=== PATIENT | female | born 1975 | race Two or more races ===

== ENCOUNTER → 2022-07-29 | Outpatient (CLI) | payer BC ==
[2022-07-29 07:12] LABS: Basophils # (auto) 0.1 10 ^3/uL (0-0.2); Basophils % (auto) 0.5 % (0.0-2.0); Eosinophils # (auto) 0.1 10 ^3/uL (0-0.8); Eosinophils % (auto) 0.9 % (0.0-7.0); Hematocrit 38.4 % (36.0-46.0); Hemoglobin 12.8 g/dL (12.2-16.2); Lymphocytes # (auto) 1.9 10 ^3/uL (0.4-5.4); Lymphocytes % (auto) 19.2 % (10.0-50.0); Mean Corpuscular Hemoglobin 26.4 pg (28.0-32.0); Mean Corpuscular Hgb Conc. 33.3 g/dL (32.0-36.0); Mean Corpuscular Volume 79.3 fL (80.0-100.0); Monocytes % (auto) 10.3 % (0.0-12.0); Neutrophils % (auto) 69.1 % (37.0-80.0); Nucleated Red Blood Cells % 0.1 %; Red Blood Cells 4.84 10^6/uL (4.0-5.20); Red Cell Distribution Width 15.5 % (11.8-14.3); White Blood Cell 10.1 10^3/uL (4.4-10.8)
[2022-07-29 07:50] LABS: Albumin 3.8 g/dL (3.4-5.0); Potassium 4.2 mmol/L (3.5-5.1)
[2022-07-29 07:55] LABS: BUN/Creatinine Ratio 18.6; Bilirubin, Total 0.5 mg/dL (0.2-1.0); Total Protein 7.5 g/dL (6.4-8.2)
== END | disposition home or self-care (01) ==
LOC: LAB 06:45
PROVIDERS: ATTEND Nurse Practitioner Family
DX: E11.9 Type 2 diabetes mellitus without complications (principal); F41.9 Anxiety disorder, unspecified
CPT/HCPCS: 36415; 80053; 80061; 82043; 83036; 84439; 84443; 85025

== ENCOUNTER → 2022-08-12 | Outpatient (CLI) | payer BC | END | disposition home or self-care (01) | LOC: XYW 11:04 | PROVIDERS: ATTEND Nurse Practitioner Family | DX: R20.0 Anesthesia of skin (principal); E11.42 Type 2 diabetes mellitus with diabetic polyneuropathy; R20.9 Unspecified disturbances of skin sensation; M79.671 Pain in right foot | CPT/HCPCS: 93925 ==

== ENCOUNTER → 2023-10-10 | Outpatient (CLI) | payer BC ==
[2023-10-10 07:36] LABS: Basophils # (auto) 0 10 ^3/uL (0-0.2); Eosinophils # (auto) 0.1 10 ^3/uL (0-0.8); Hemoglobin 10.5 g/dL (12.2-16.2); Monocytes # (auto) 0.6 10 ^3/uL (0-1.3); Neutrophils # (auto) 4.7 10 ^3/uL (1.6-8.6); Red Cell Distribution Width 17.4 % (11.8-14.3)
[2023-10-10 07:38] LABS: Basophils % (auto) 0.5 % (0.0-2.0); Eosinophils % (auto) 0.9 % (0.0-7.0); Lymphocytes # (auto) 2.1 10 ^3/uL (0.4-5.4); Lymphocytes % (auto) 27.7 % (10.0-50.0); Mean Corpuscular Hemoglobin 23.4 pg (28.0-32.0); Mean Corpuscular Hgb Conc. 31.8 g/dL (32.0-36.0); Mean Corpuscular Volume 73.7 fL (80.0-100.0); Monocytes % (auto) 8.1 % (0.0-12.0); Neutrophils % (auto) 62.8 % (37.0-80.0); Red Blood Cells 4.48 10^6/uL (4.0-5.20); White Blood Cell 7.5 10^3/uL (4.4-10.8)
[2023-10-10 08:13] LABS: Creatinine, Urine 66.25 mg/dL (30.0-125.0)
[2023-10-10 08:19] LABS: Alanine Aminotransferase 22 U/L (7-40); Alkaline Phosphatase 68 U/L (46-116); Anion Gap 9 (5-15); Aspartate Aminotransferase 24 U/L (13-40); BUN/Creatinine Ratio 12.2 (10.0-20.0); Blood Urea Nitrogen 9 mg/dL (9-23); Calcium 9.3 mg/dL (8.5-10.1); Carbon Dioxide 24 mmol/L (20-30); Chloride 108 mmol/L (98-107); Glucose 129 mg/dL (74-106); LDL Cholesterol 108 mg/dL (< 100); Potassium 4.1 mmol/L (3.5-5.1); Sodium 141 mmol/L (136-145); Triglycerides 171 mg/dL (< 150)
[2023-10-10 08:20] LABS: Albumin 4.3 g/dL (3.2-4.8); Bilirubin, Total 0.5 mg/dL (0.2-1.0); Cholesterol 194 mg/dL (< 200); HDL Cholesterol 63 mg/dL (40-59); Total Protein 7.2 g/dL (5.7-8.2)
== END | disposition home or self-care (01) ==
LOC: LAB 07:23
PROVIDERS: ATTEND Nurse Practitioner Family
DX: E11.42 Type 2 diabetes mellitus with diabetic polyneuropathy (principal); I10 Essential (primary) hypertension; E78.5 Hyperlipidemia, unspecified
CPT/HCPCS: 36415; 80053; 80061; 82043; 82570; 83036; 84439; 84443; 85025

== ENCOUNTER → 2024-11-14 | Outpatient (CLI) | payer BC ==
[2024-11-14 07:13] LABS: Basophils # (auto) 0 10 ^3/uL (0-0.2); Eosinophils # (auto) 0.1 10 ^3/uL (0-0.8); Eosinophils % (auto) 1.2 % (0.0-7.0); Hemoglobin 10.5 g/dL (12.2-16.2); Monocytes # (auto) 0.8 10 ^3/uL (0-1.3)
[2024-11-14 07:14] LABS: Alanine Aminotransferase 20 U/L (7-40); Albumin 4.4 g/dL (3.2-4.8); Alkaline Phosphatase 78 U/L (46-116); Anion Gap 10 (5-15); Aspartate Aminotransferase 19 U/L (13-40); Blood Urea Nitrogen 9 mg/dL (9-23); Calcium 10.1 mg/dL (8.7-10.4); Carbon Dioxide 26 mmol/L (20-31); Chloride 105 mmol/L (98-107); Cholesterol 182 mg/dL (< 200); Glucose 98 mg/dL (74-106); Potassium 4.2 mmol/L (3.5-5.1); Sodium 141 mmol/L (136-145); Total Protein 7.2 g/dL (5.7-8.2); Triglycerides 90 mg/dL (< 150)
[2024-11-14 07:15] LABS: Bilirubin, Total 0.8 mg/dL (0.2-1.0)
[2024-11-14 07:16] LABS: HDL Cholesterol 63 mg/dL (40-59); LDL Cholesterol 106 mg/dL (< 100)
[2024-11-14 07:18] LABS: Basophils % (auto) 0.3 % (0.0-2.0); Hematocrit 32.8 % (36.0-46.0); Lymphocytes # (auto) 1.8 10 ^3/uL (0.4-5.4); Lymphocytes % (auto) 25.1 % (10.0-50.0); Mean Corpuscular Hemoglobin 24.4 pg (28.0-32.0); Mean Corpuscular Hgb Conc. 32.1 g/dL (32.0-36.0); Monocytes % (auto) 10.5 % (0.0-12.0); Neutrophils # (auto) 4.6 10 ^3/uL (1.6-8.6); Neutrophils % (auto) 62.9 % (37.0-80.0); Nucleated Red Blood Cells % 0.1 %; Platelet Count (auto) 294 10^3/uL (140-450); Red Blood Cells 4.32 10^6/uL (4.0-5.20); Red Cell Distribution Width 18.7 % (11.8-14.3); White Blood Cell 7.3 10^3/uL (4.4-10.8)
[2024-11-14 07:53] LABS: Creatinine, Urine 83.89 mg/dL (30.0-125.0)
== END | disposition home or self-care (01) ==
LOC: LAB 06:35
PROVIDERS: ATTEND Nurse Practitioner Family
DX: I10 Essential (primary) hypertension (principal); E11.42 Type 2 diabetes mellitus with diabetic polyneuropathy; F41.9 Anxiety disorder, unspecified
CPT/HCPCS: 36415; 80053; 80061; 82043; 82570; 83036; 84443; 85025

== ENCOUNTER 2025-01-01 15:38 | Outpatient (CLI) | payer BC | END 2025-01-01 17:00 | disposition home or self-care (01) | LOC: LAB 15:38 | PROVIDERS: ATTEND Nurse Practitioner Family | DX: N39.0 Urinary tract infection, site not specified (principal) | CPT/HCPCS: 87086 ==

== ENCOUNTER 2025-04-16 16:27 | Outpatient (CLI) | payer BC ==
[2025-04-18] MEDS ORDERED: PREG20SO OR (12:07)
[2025-04-18] MEDS ORDERED: ALPR0.25 PO (12:07)
[2025-04-18] MEDS ORDERED: TIRZ5INJ SC (12:07)
== END 2025-04-16 17:00 | disposition home or self-care (01) ==
LOC: LAB 16:27
PROVIDERS: ATTEND Nurse Practitioner Family
DX: N39.0 Urinary tract infection, site not specified (principal)
CPT/HCPCS: 87086

== ENCOUNTER 2025-04-24 06:06 | Day surgery (SDC) | payer BC ==
[2025-04-18 12:38] LABS: Hematocrit 33.6 % (36.0-46.0); Hemoglobin 10.9 g/dL (12.2-16.2); Mean Corpuscular Hemoglobin 26.1 pg (28.0-32.0); Mean Corpuscular Volume 80.5 fL (80.0-100.0); Nucleated Red Blood Cells % 0.0 %
[2025-04-18 12:47] LABS: Urine Protein, UAD Negative (Negative); Urine WBC Clumps PRESENT /hpf (None Seen)
[2025-04-18 12:57] LABS: INR 0.95 (0.9-1.15); Partial Thromboplastin Time 25.4 SEC (24.5-34.5); Prothrombin Time 10.1 sec (9.3-11.8)
[2025-04-18 13:01] LABS: Alanine Aminotransferase 17 U/L (7-40); Albumin 4.2 g/dL (3.2-4.8); Alkaline Phosphatase 66 U/L (46-116); Anion Gap 11 (5-15); BUN/Creatinine Ratio 11.0 (10.0-20.0); Bilirubin, Total 0.5 mg/dL (0.2-1.0); Calcium 8.9 mg/dL (8.7-10.4); Carbon Dioxide 25 mmol/L (20-31); Chloride 104 mmol/L (98-107); Glucose 90 mg/dL (74-106); Potassium 3.8 mmol/L (3.5-5.1); Sodium 140 mmol/L (136-145); Total Protein 7.2 g/dL (5.7-8.2)
[2025-04-18 13:08] LABS: Blood Urea Nitrogen 8 mg/dL (9-23)
[~2025-04-24] VITALS: Ht 149.9 cm; Wt 63.5 kg
[~2025-04-24 06:06] MED LIST: ALPR0.25 PO; PREG20SO OR; TIRZ5INJ SC
[2025-04-24] MEDS ORDERED: [UNRECOGNIZED DRUG - OTHER] IV ONE (06:07)
[2025-04-24] MEDS ORDERED: CEFAZOLIN IV ONE (06:07)
[2025-04-24] MEDS ORDERED: BUPIVACAINE HCL 50 ML ONE (06:58)
[2025-04-24] MEDS ORDERED: fentaNYL CITRATE 100 MCG/2 ML VL ONE (07:16)
[2025-04-24] MEDS ORDERED: MIDAZOLAM HCL 2MG/2ML 2ml VIAL (1mg/ml) ONE (07:16)
[2025-04-24] MEDS ORDERED: LIDOCAINE 2% (LOCAL ANESTH.) PF 5ml SDV ONE (07:17)
[2025-04-24] MEDS ORDERED: ONDANSETRON HCL 4 MG/2 ML VIAL ONE ×2 (07:17→12:20)
[2025-04-24] MEDS ORDERED: PROPOFOL 10 MG/ML 20 ML IV ONE (07:17)
[2025-04-24] MEDS ORDERED: METOCLOPRAMIDE HCL 5MG/ml INJ 2ml VIAL ONE ×2 (07:17→12:20)
[2025-04-24] MEDS ORDERED: ROCURONIUM 10MG/ML 10ML VIAL IV ONE (07:17)
[2025-04-24] MEDS ORDERED: LIDOCAINE W/ EPINEPHRINE 1% 20ML VIAL ONE (07:37)
[2025-04-24] MEDS ORDERED: HYDR1TAB97 PO (07:40)
[2025-04-24] MEDS ORDERED: DOCU-265 PO (07:41)
[2025-04-24] MEDS ORDERED: ASPI-498 OR (07:41)
[2025-04-24] MEDS ORDERED: ONDA-155 PO (07:42)
[2025-04-24] MEDS ORDERED: SODIUM CHLORIDE LOCK 10 ML ONE (07:42)
[2025-04-24] MEDS ORDERED: CEPH500C PO (07:42)
[2025-04-24] MEDS: TRANEXAMIC ACID 20 ML ONE (07:53)
[2025-04-24] MEDS ORDERED: HYDROmorphone HCL 2 MG/ML VL/or syr ONE ×2 (07:57→10:34)
[2025-04-24] MEDS ORDERED: BUPIVACAINE 0.25% INJ 50ML VIAL ONE (08:04)
[2025-04-24] MEDS ORDERED: VANCOMYCIN HCL 1000 MG VL ONE (09:31)
[2025-04-24] MEDS ORDERED: SUGAMMADEX 200mg/2ml Vial (100MG/ML) IV ONE (09:35)
--- NOTE | 2025-04-24 09:50 | DVHOP2 ---
Operative Report - 2 Report Details Date: 04/24/25 Preop Diagnosis: Right shoulder subscapularis rotator cuff massive tear with possible loose body Postop Diagnosis: Right shoulder subscapularis massive rotator cuff tear, reverse Hill-Sachs with loose bodies, high-grade chondromalacia Surgeon: Carolin Stein MD Water Attendant: Vikas Massey, Physician Water Attendant Anesthesiologist: Bob Fong CRNA Anesthesia: General, Regional Implant: Eighty Eight anchor x2, tapestry Cinda collagen implant x1 Consent: The patient was informed of the risks and benefits of the procedure. These include but are not limited to complications of anesthesia, postoperative infection, incomplete relief of symptoms, recurrence of symptoms, damage to blood vessels, nerves and tendons, deep venous thrombosis, pulmonary embolism and possible need for repeat surgery in the future. Complications: None Estimated Blood Loss: Less than 25 mL Indications for Surgery: The patient is a 50-year-old female who presented to the clinic with a history of chronic shoulder pain. Clinical and radiological evaluation demonstrated complete subscapularis tear with significant retraction and atrophy. Nonoperative and operative management options were discussed. She did have some weakness and popping. It is unclear whether she had dislocations are not. Belly press test was positive for significant weakness. Nonoperative and operative management options were considered. Given the young age of the patient and the significant disability, surgery was recommended after thorough trial of nonoperative management. Benefits, risks and treatment alternatives were discussed. Specific complications such as neurovascular injury, infection, arthrofibrosis, loss of limb or life were discussed. She decided to proceed with the surgical option. Name of Procedure Performed Right shoulder arthroscopy, extensive debridement, chondroplasty, removal of loose bodies, open rotator cuff repair of the subscapularis, collagen augmenta tion Procedure Details Procedure Details: The patient was identified in the preoperative holding area and the surgical site was marked. The consent was verified. The patient was brought into the operating room and placed supine on the operating table. General anesthesia was administered. The beachchair attachment was applied to the operating table. The patient was now brought up into the beachchair position, approximately 60 degrees. The arm was prepped and draped in the usual sterile manner. The arm was placed in the attachment for the spyder, mechanical arm gunderson. The extremity was examined under anesthesia and was found to have good passive range of motion. A timeout was performed to confirm the identity of the patient, the nature of surgery, the site of surgery, the available of implants and x-rays and allergies to medications A standard posterior portal established. A 30 degree scope was inserted A standard anterior portal was established. A probe was inserted and the findings are as follows: 1. Near complete tear of the subscapularis tendon with significant retraction 2. Normal biceps tendon 3. Circumferential degenerative labral tear including anterior labrum 4. 3/4 chondromalacia 5. Significant synovitis 6. Intact supraspinatus/infraspinatus The subscapularis tendon was identified. This was significantly retracted and it was not possible to bring it up to the footprint. A large bony fragment was also visualized. Initially attempt was made to remove it arthroscopically and partial loose body removal was done. However it was realized that the fragment was very large and was adherent to the capsule. I decided to proceed with the open part of the procedure as per preoperative planning. It was very likely that the subscapularis would not be amenable to repair arthroscopically due to the significant scar tissue and multiple lines of tear. High-grade chondromalacia was noted on the superior part of the humeral head, grade 4 chondromalacia was noted in the anterior part of the glenoid. Extensive debridement including chondral debridement, labral debridement and rotator cuff debridement was done. Releases were performed for the subscapularis tendon arthroscopically with the help of a Wand. Care was taken not to go anterior to the subscapularis tendon due to proximity of the axillary nerve. The subscapularis upper 3rd was tagged with a fiber tape for easier identification during open part of the procedure A standard deltopectoral approach was used. The skin and the subcutaneous tissue were dissected. The deep fascia was incised. The deltopectoral interval was and the conjoined tendon was visualized. The humeral head could be visualized as the subscapularis was completely torn. The biceps tendon was visualized and protected. A self-retaining retractors were applied. The cephalic vein was noted to be retracted medially and was cauterized as it was bleeding. The conjoined tendon was retracted medially. Axillary nerve was palpated and visualized and protected throughout the case. It was noted that the loose body was in fact attached to the lower 3rd of the subscapularis. Given the significant defect on the anterior humeral head, this was possibly Reverse Hill- Sachs lesion. The bony fragment was large and was debulked, however some of the fragment was attached to the capsule and was very medial and was left intact due to the proximity of neurovascular structures. It was also realized that this can be utilized to reattached the bony fragment to the anterior part of the humeral head for better fixation. The subscapularis tendon was very poor quality and torn at several places including medially. I decided to bring it closer to the footprint with superior and inferior flaps. I used two knotless a nchors. Suture tape was passed around the bony fragment inferiorly and two suture tapes were passed around the superior subscapularis tendon. The humeral head was noted to be almost completely dislocated. This was pushed back into place. Anterior labral repair was not considered necessary due to the risk of stiffness and a significant chondromalacia/arthritis. A drill was used to drill the towboat pilot hole for the anchor. The anchor was now inserted with the tapes and excellent fixation and approximation of the subscapularis tendon was noted. The humeral head was pushed posteriorly during this step. There was some gap noted between the superior and inferior flap. I decided to augment this with a collagen implant. The collagen implant would also increase the possibility of the [place] subscapularis tendon healing. This was placed on top of the tendon and affixed with 3-0 Monocryl. Thorough irrigation was given. The deltopectoral interval was closed with 2-0 Ethibond. The skin and the subcutaneous tissue was closed with 2-0 Vicryl and 3-0 Monocryl. Sterile dressing was applied The arm was placed in a shoulder immobilizer with internal rotation. Disposition: Good, the patient was extubated and taken to recovery without any complications. The patient was examined in the recovery and had intact neurovascular exam Plan: To remain in the brace. Follow-up in 1 week. We will initiate physical therapy in four weeks. Passive flexion, active assisted flexion allowed. Passive abduction in the plane of scapula allowed. No external rotation beyond 0 for six weeks. Condition Good Disposition Home CAROLIN STEIN MD Apr 24, 2025 09:50
[2025-04-24 10:12] VITALS: PULSE 90; RESP 14; TEMP 97.2; O2SAT 96
[2025-04-24 10:22] VITALS: PULSE 85; RESP 14; O2SAT 98
[2025-04-24] MEDS: ACETAMINOPHEN IV 1000 MG/100ML (10MG/ML) IV ONE (10:26)
[2025-04-24] MEDS: ONDANSETRON HCL 4 MG/2 ML VIAL IV PRN (10:27)
[2025-04-24] MEDS: KETOROLAC TROMETH 30 MG/ML 1ML VIAL IV ONE (10:41)
[2025-04-24 11:46] VITALS: PULSE 91; RESP 18; O2SAT 95
[2025-04-24] MEDS: HYDROmorphone HCL 2 MG/ML VL/or syr IV PRN (11:46)
[2025-04-24] MEDS ORDERED: ONDANSETRON HCL 4 MG/2 ML VIAL IV ONE (12:12)
[2025-04-24] MEDS ORDERED: diphenhdrAMINE HCL 50 MG/1 ML VL ONE (12:21)
[2025-04-24] MEDS: METOCLOPRAMIDE HCL 5MG/ml INJ 2ml VIAL IV ONE (12:27)
[2025-04-24] MEDS: diphenhdrAMINE HCL 50 MG/1 ML VL IV ONE (12:28)
[2025-04-24 12:45] VITALS: PULSE 90; RESP 12; O2SAT 97
[2025-04-24 13:12] VITALS: BP 126/75; PULSE 97; RESP 17; O2SAT 95
== END 2025-04-24 13:22 | disposition home or self-care (01) ==
LOC: EEVIPCON → SUR 06:06
PROVIDERS: ATTEND Orthopaedic Surgery Sports Medicine
DX: M75.121 Complete rotator cuff tear or rupture of right shoulder, not specified as traumatic (principal); G89.29 Other chronic pain; M94.211 Chondromalacia, right shoulder; S43.431A Superior glenoid labrum lesion of right shoulder, initial encounter; M65.911 Unspecified synovitis and tenosynovitis, right shoulder; E11.9 Type 2 diabetes mellitus without complications; Z79.899 Other long term (current) drug therapy; Z98.890 Other specified postprocedural states
CPT/HCPCS: 23412; 29823; 36415; 64415; 80053; 81001; 81025; 82962; 85025; 85610; 85730; J0169; J1100; J1171; J1200; J1885; J2003; J2250; J2405; J2704; J2765; J3010; J3373; J3490; J7120; A4565; J0131